=== PATIENT | male | born 1980 | race African-American/Black ===

== ENCOUNTER 2019-09-18 11:22 | Emergency (ER) | payer OTHER | END 2019-09-18 13:59 | disposition home or self-care (01) | LOC: EDH 11:22 | DX: J02.9 Acute pharyngitis, unspecified (principal); R50.9 Fever, unspecified; Z20.828 Contact with and (suspected) exposure to other viral communicable diseases | CPT/HCPCS: 87804 ×2; 87426; 87880; 99283; U0003 ==